=== PATIENT | female | born 1955 | race Caucasian/White ===

== ENCOUNTER → 2020-06-01 15:37 | Outpatient (CLI) | payer MEDICARE, SELFPAY ==
--- NOTE | ~2020-06-01 | US_ITS ---
EXAMINATION: US thyroid EXAM DATE: 06/01/2020 15:53 INDICATION: E04.1 - Nontoxic single thyroid nodule. TECHNIQUE: Multiple grayscale and Doppler images of the thyroid were obtained (by a technologist who performed the scan) and subsequently reviewed. Individual nodules and recommendations may be reporte d in accordance with TI-RADS system as designated by the 2017 ACR White Paper TI-RADS committee. Comp sandro is made to prior examination from 06/02/2014. FINDINGS: The right thyroid lobe measures 3.8 x 1.9 x 1.8 cm, the left measuring 4.1 x 1.8 x 1.4 cm. Measuremen ts are mildly enlarged. There is diffusely heterogeneous thyroid echogenicity. A focal region was owen sured in the left thyroid lobe measuring 6 mm, uncertain whether or not this is a nodule. In either c ase, no follow-up required for this finding. IMPRESSION: Heterogeneous mildly enlarged thyroid. Reviewed, dictated and finalized at location B. SION PLANT ENGINEER
== END ==
PROVIDERS: PCP Family Medicine; Visit Provider Family Medicine
DX: E04.1 Nontoxic single thyroid nodule (principal)
CPT/HCPCS: 76536

== ENCOUNTER → 2020-06-22 12:42 | Outpatient (CLI) | payer MEDICARE, SELFPAY ==
--- NOTE | ~2020-06-22 | MM_ITS ---
EXAMINATION: MM screening kristal BI w luci HISTORY: Screening TECHNIQUE: Craniocaudal and mediolateral oblique 3-D tomosynthesis images were obtained and synthetic 2-D images were generated. CAD analysis was submitted and interpreted. COMPARISON: Comparison to multiple prior studies sequentially, with oldest reviewed study dated 04/30. BREAST PARENCHYMAL COMPOSITION: There are scattered areas of fibroglandular density. FINDINGS: There is no evidence of suspicious mass, calcification, or architectural distortion to sugg est malignancy in either breast. There has been no suspicious interval change. IMPRESSION: 1. No mammographic evidence of malignancy. 2. Recommend routine screening mammography in one year. BI-RADS Category 1: Negative Reviewed, dictated and finalized at location A.
--- NOTE | ~2020-06-22 | DEXA_ITS ---
Bone Density Report Name: Leonard Cortes Age: 65 Sex: Female Ethnicity: White Date of : 1955 Indication: osteopenia; postmenopausal Referring Provider: MIRIAM MESSINA Study: Bone densitometry was performed. Exam Date: June 22, 2020 Accession number: [id number] Bone Density: Region BMD T-score Z-score Classification AP Spine (L1-L4) 0.799 -2.3 -0.4 Osteopenia Femoral Neck (Left) 0.694 -1.4 0.2 Osteopenia Total Hip (Left) 0.868 -0.6 0.7 Normal Femoral Neck (Right) 0.738 -1.0 0.6 Normal Total Hip (Right) 0.913 -0.2 1.0 Normal Total Hip Mean 0.890 -0.4 0.9 Normal World Health Organization criteria for BMD impression classify patients as: Normal (T-score at or above -1.0), Osteopenia (T-score between -1.0 and -2.5), or Osteoporosis (T-score at or below -2.5). 10-year Fracture Risk(1): Major Osteoporotic Fracture 8.8% Hip Fracture 0.9% Reported Risk Factors: [place] (), Neck BMD=0.694, BMI=27.7 (1) FRAX(R) Version 3.08. Fracture probability calculated for an untreated patient. Fracture probability may be lower if the patient has received treatment. Previous Exams: Region Exam Age BMD T-score BMD Change BMD Change Date g/cm2 vs Baseline vs Previous AP Spine(L1-L4) 06/22/2020 65 0.799 -2.3 -0.026* -0.026* 09/06/2016 61 0.825 -2.0 Total Hip(Left) 06/22/2020 65 0.868 -0.6 -0.006 -0.006 09/06/2016 61 0.875 -0.6 Total Hip(Right) 06/22/2020 65 0.913 -0.2 -0.028* -0.028* 09/06/2016 61 0.940 0.0 *Denotes significance at 95% confidence level, LSC for AP Spine = 0.022 g/cm2, LSC for Total Hip = 0.027 g/cm2 Clinical Information Provided by Patient: Has used the following medications: Vitamin D Patient maximum height was 64 Menopause Age: 47 No regular weight bearing exercise Drinks caffeinated beverages Onset of menses at age 11 Number of children 0 Impression: The patient has low bone mass, based on the Total Spine T-score. The patient has an estimated ten-year risk of hip fracture of 0.9% and an estimated ten-year risk of major fracture of 8.8%, based on the WHO FRAX algorithm. The BMD for the AP Spine(L1-L4) decreased, changing by -0.026 since the last DXA exam. The BMD for the Total Hip(Right) decreased, changing by -0.028 since the last DXA exam. Discussion: BONE DENSITY IS LOW AT ONE OR MORE SKELETAL SITES. This patient's lowest T-score is low at
== END ==
PROVIDERS: PCP Family Medicine; Visit Provider Family Medicine
DX: Z12.31 Encounter for screening mammogram for malignant neoplasm of breast (principal); Z78.0 Asymptomatic menopausal state; M85.88 Other specified disorders of bone density and structure, other site; M85.852 Other specified disorders of bone density and structure, left thigh
CPT/HCPCS: 77063; 77067; 77080

== ENCOUNTER 2021-07-25 11:08 | Outpatient (CLI) | payer MEDICARE, SELFPAY ==
--- NOTE | ~2021-07-25 | MR_ITS ---
EXAMINATION: MR brain/brain stem wo con DATE: 07/25/2021 11:49 INDICATION: Tremor, unspecified. TECHNIQUE: Magnetic resonance imaging (MRI) of the brain and brainstem was performed without intraven ous contrast. COMPARISON: None. FINDINGS: There are scattered areas of nonspecific increased T2-weighted signal intensity in the cere bral white matter, which is within normal limits for the patient's age. There is no intracranial hemo rrhage, acute infarction, or abnormal intracranial mass lesion. The ventricles are normal in size. Th e paranasal sinuses are clear. The orbits are normal. The mastoid air cells are normal. IMPRESSION: 1. Normal aging brain. Reviewed, dictated and finalized at location B. IMPRESSION: 1. Normal aging brain.
== END 2021-07-25 11:09 | disposition home or self-care (01) ==
PROVIDERS: PCP Family Medicine; Visit Provider Nurse Practitioner Gerontology
DX: R25.1 Tremor, unspecified (principal)
CPT/HCPCS: 70551

== ENCOUNTER → 2022-08-03 11:11 | Outpatient (CLI) | payer MEDICARE, SELFPAY ==
--- NOTE | ~2022-08-03 | XR_ITS ---
Right Humerus Technique: AP and lateral views were obtained. Clinical History: Pain Findings: No fracture or dislocation is seen. Osseous alignment is anatomic. Mild AC joint degenerati ve change present. Glenohumeral and elbow joints appear unremarkable. Soft tissues are unremarkable. Impression: Mild AC joint degenerative change. No fracture or dislocation. Reviewed, dictated and finalized at location . Impression: Mild AC joint degenerative change. No fracture or dislocation.
== END ==
PROVIDERS: PCP Nurse Practitioner Gerontology; Visit Provider Nurse Practitioner Gerontology
DX: M79.603 Pain in arm, unspecified (principal)
CPT/HCPCS: 73060

== ENCOUNTER 2023-04-01 13:54 | Outpatient (CLI) | payer MEDICARE, SELFPAY ==
--- NOTE | ~2023-04-01 | XR_ITS ---
EXAMINATION: XR foot RT min 3V DATE: 04/01/2023 14:24 INDICATION: Right foot injury and pain. TECHNIQUE: 4 views of right foot were obtained. COMPARISON: None. FINDINGS: Bone alignment is normal. There is a transverse fracture of proximal metaphysis of fourth p roximal phalanx. The distal fracture fragment demonstrates 24 degrees dorsal angulation. There is mil d osteoarthritis of first metatarsophalangeal joint and some of the interphalangeal joints and talona vicular joint. There are enthesophytes at the posterior and plantar aspects of calcaneal tuberosity. IMPRESSION: 1. Transverse fracture of fourth proximal phalanx. Reviewed, dictated and finalized at location E. M PROCESSOR
== END 2023-04-01 13:55 | disposition home or self-care (01) ==
PROVIDERS: PCP Family Medicine; Visit Provider Family Medicine
DX: S92.511A Displaced fracture of proximal phalanx of right lesser toe(s), initial encounter for closed fracture (principal); W22.8XXA Striking against or struck by other objects, initial encounter
CPT/HCPCS: 73630

== ENCOUNTER → 2023-06-05 08:42 | Outpatient (CLI) | payer MEDICARE, SELFPAY ==
--- NOTE | ~2023-06-05 | MR_ITS ---
EXAMINATION: MR brain/brain stem wo con DATE: 06/05/2023 09:11 INDICATION: Left homonymous inferior quadrantanopsia. TECHNIQUE: Magnetic resonance imaging (MRI) of the brain and brainstem was performed without intraven ous contrast. COMPARISON: Brain MRI 07/25/2021 FINDINGS: There are scattered areas of nonspecific increased T2-weighted signal intensity in the cere bral white matter, which is within normal limits for the patient's age. The pituitary is normal in si ze. There is no intracranial hemorrhage, acute infarction, or abnormal intracranial mass lesion. The ventricles are normal in size. There is mild mucosal thickening in the ethmoid sinuses. The orbits ar e normal. There is a trace left mastoid effusion. IMPRESSION: 1. Normal aging brain. Reviewed, dictated and finalized at location A. ER INSPECTOR IMPRESSION: 1. Normal aging brain.
== END ==
PROVIDERS: PCP Student in an Organized Health Care Education/Training Program; Visit Provider Student in an Organized Health Care Education/Training Program
DX: H53.462 Homonymous bilateral field defects, left side (principal)
CPT/HCPCS: 70551

== ENCOUNTER 2023-07-07 13:53 | Outpatient (CLI) | payer MEDICARE, SELFPAY ==
--- NOTE | ~2023-07-07 | XR_ITS ---
XR_CERV2-3V_CR DATE: 07/07/2023 14:43 INDICATION: Neck pain TECHNIQUE: AP, open-mouth, lateral views COMPARISON: None FINDINGS: Osteopenia. There is straightening and mild reversal of cervical curvature which may be due to muscle spasm. Ther e is slight dextroscoliosis. C1 and C2 are normally aligned and the odontoid process is intact. No fracture or dislocation or lock ed facet or prevertebral soft tissue swelling is detected. There is moderate loss of interspace height and minimal retrolisthesis at C5-6 consistent with modera te degenerative disc disease. Moderate degenerative disc disease at C6-7. The remaining cervical interspaces are well preserved. There is uncovertebral joint spurring primarily at C5-6 and C6-7. IMPRESSION: Straightening and mild reversal of cervical curvature, slight dextroscoliosis Osteopenia Mild to moderate cervical spondylosis Reviewed, dictated and finalized at Location A. Reviewed, dictated and finalized at location B. IMPRESSION: Straightening and mild reversal of cervical curvature, slight dextr oscoliosis Osteopenia Mild to moderate cervical spondylosis
== END 2023-07-07 13:54 ==
LOC: MICIMG 13:54
PROVIDERS: PCP Physician Assistant; Visit Provider Physician Assistant
DX: M85.88 Other specified disorders of bone density and structure, other site (principal); M47.892 Other spondylosis, cervical region
CPT/HCPCS: 72040

== ENCOUNTER 2024-07-14 09:01 | Outpatient (CLI) | payer MEDICARE, SELFPAY ==
[2024-07-14 09:46] LABS: Basophils Percent Auto 0.7 % (0.2-1.2); Eosinophils Absolute Auto 0.1 K/mm3 (0-0.3); Eosinophils Percent Auto 2.2 % (0-4.4); Hematocrit 43.2 % (37.0-47.0); Immature Granulocyte Absolute 0.01 K/mm3 (0.00-0.031); Immature Granulocyte Percent A 0.2 % (0-0.5); Lymphocytes Absolute Auto 1.63 K/mm3 (0.9-3.2); Lymphocytes Percent Auto 27.4 % (18.3-44.2); Mean Corpuscular HGB Conc 32.4 g/dl (32-36); Mean Corpuscular Hemoglobin 31.1 pg (26-34); Mean Platelet Volume 9.9 fl (7.4-10.4); Monocytes Absolute Auto 0.4 K/mm3 (0.1-0.6); Monocytes Percent Auto 7.4 % (2.6-8.5); Neutrophils Absolute Auto 3.7 K/mm3 (1.3-6.7); Neutrophils Percent Auto 62.1 % (45.5-73.1); Platelet Count Result 244 k/mm3 (150-375); Red Cell Distribution Width 12.7 % (11.5-14.5); White Blood Count 5.9 K/mm3 (4.5-10.0)
--- OUTSIDE RECORDS SUMMARY | 2024-07-14 09:53 | XMS_ITS | Clinical Summary ---
Author Organization [facility] Address [address] [place] [address] Care Team Providers Care Commission Auditor Name Role Phone Chantel Vega MD Primary Care Provider + Source Comments [facility],non-owned Affiliates and Associated Physician Practices is amultiple site organization consisting of ambulatory clinics and hospital sitesin [place], [place], [place] and [place]. This disclosure is being madepursuant to the Care Everywhere program and may not contain all information available regarding this patient. Last updated 17.[facility] Allergies Active Allergy Reactions Criticality Noted Date Comments Penicillins Rash Medium 04/16/2018 States can take amoxicillin without reaction Medications Be aware that medications may not be up to date on this document. Always verify current medications with the patient. No known medications Active Problems No known active problems Social History Tobacco Use Types Packs/Day Years Used Date Smoking Tobacco: Never Smokeless Tobacco: Never Sex and Gender Information Value Date Recorded Sex Assigned at Not on file Gender Identity Not on file Sexual Orientation Not on file Last Filed Vital Signs Vital Sign Reading Time Taken Comments Blood Pressure 116/66 11/02/2019 10:48 AM CDT Pulse 86 11/02/2019 10:48 AM CDT Temperature 36.9 C (98.5 F) 11/02/2019 10:48 AM CDT Respiratory Rate 16 11/02/2019 10:48 AM CDT Oxygen Saturation 98% 11/02/2019 10:48 AM CDT Inhaled Oxygen Concentration - - Weight 70.3 kg (155 lb) 11/02/2019 10:48 AM CDT Height 162.6 cm (5' 4 ) 11/02/2019 10:48 AM CDT Body Mass Index 26.61 11/02/2019 10:48 AM CDT Plan of Treatment Health Maintenance Due Date Last Done Comments BONE DENSITY TESTING 1955 COLOGUARD (AGES 45-75) - COL ON CA SCREENING 1955 COLON MONITORING 1955 COLONOSCOPY - COLON CA SCREENING 1955 CT COLONOGRAPHY - COLON CA SCREENING 1955 Colorectal Cancer Screening 1955 FIT - COLON CA SCREENING 1955 FLEX SIG - COLON CA SCREENING 1955 LIPID TESTING 1955 MAMMOGRAM 1955 HEPATITIS C SCREENING 05/13/1972 DTAP/TDAP/TD VACCINES (1 - Tdap) 1973 PNEUMOCOCCAL VACCINE 50+ (1 of 1 - PCV) 2004 ZOSTER VACCINE (1 of 2) 2004 SCREENING FOR DIABETES 11/02/2019 COVID-19 VACCINE (1 - 2023-2 5 season) 2023 DEPRESSION SCREENING 04/07/2024 MEDICARE AWV CALENDAR YEAR 2024 INFLUENZA VACCINE (Season Ended) 2024 Respiratory Syncytial Virus (RSV) Vaccine Pt: or over 60 yrs (1 - 1-dose 75+ series) 2029 HEPATITIS B VACCINE Aged Out No longe r eligible based on patient's age to complete this topic HIB VACCINE Aged Out No longer eligi ble based on patient's age to complete this topic HPV VACCINE Aged Out No longer eligi ble based on patient's age to complete this topic MENINGOCOCCAL (Group B) VACC INE SHARED DECISION-MAKING Aged Out No longer eligibl e based on patient's age to complete this topic MENINGOCOCCAL GROUPS A/C/Y/W VACCINE Aged Out No longer eligible b ased on patient's age to complete this topic Care Teams Commission Auditor Relationship Specialty Start Date End Date Chantel Vega MD [address] [place] [address] PCP - General Family Medicine 04/16/18
[2024-07-14 10:11] LABS: LDL Cholesterol Direct 213 mg/dL
[2024-07-14 10:23] LABS: Alanine Aminotransferase 27 U/L (6-35); Albumin Level 4.5 g/dL (3.5-5.1); Alkaline Phosphatase 112 U/L (38-126); Anion Gap 11 mmol/L (4-12); Aspartate Amino Transferase 26 U/L (14-36); Bilirubin,Total 0.5 mg/dL (0.2-1.3); Blood Urea Nitrogen 15 mg/dL (7-17); Calcium 9.5 mg/dL (8.4-10.2); Carbon Dioxide 26 mmol/L (22-30); Chloride 105 mmol/L (98-107); Estimated Glomerular Filt Rate > 60; Free T3 4.43 pg/mL (2.45-5.93); Free T4 Free Thyroxine 0.85 ng/dL (0.78-2.19); Glucose 91 mg/dL (65-110); HDL Direct 45 mg/dL; Potassium 4.2 mmol/L (3.4-5.0); Sodium 142 mmol/L (137-145); Triglycerides 239 mg/dL (<150)
[2024-07-14 10:58] LABS: Cholesterol 333 mg/dL (0-200)
== END 2024-07-14 09:02 | disposition home or self-care (01) ==
PROVIDERS: PCP Family Medicine; Visit Provider Student in an Organized Health Care Education/Training Program
DX: E78.5 Hyperlipidemia, unspecified (principal); E03.9 Hypothyroidism, unspecified; H53.8 Other visual disturbances; E07.9 Disorder of thyroid, unspecified
CPT/HCPCS: 36415; 80053; 80061; 84439; 84443; 84481; 85025

== ENCOUNTER 2024-08-20 07:06 | Outpatient (CLI) | payer MEDICARE, SELFPAY ==
--- NOTE | ~2024-08-20 | US_ITS ---
EXAMINATION:US venous doppler LE RT INDICATION:Swelling right knee TECHNIQUE: Multiple grayscale, color flow and Doppler images of the right lower extremity deep venous systems were obtained and reviewed. COMPARISON:No prior studies for comparison. FINDINGS: The common femoral, superficial femoral and popliteal veins demonstrate normal respiratory variation, augmentation and compressibility. Color flow is also seen within the posterior tibial, pe roneal, greater saphenous and profunda veins. IMPRESSION: 1: No lower extremity deep venous thrombosis. Reviewed, dictated and finalized at location A.
--- OUTSIDE RECORDS SUMMARY | 2024-08-20 07:09 | XMS_ITS ---
Author Organization [facility] [place] ([address]) Address [address] [place] [id number] Care Team Providers Care Export Freight Manager Name Role Phone Dr. Chantel Lubin Primary Care Provider Un available Dr. Nestor Browne Unavailable [phone] Allergies Allergen (clinical drug ingredient) Drug/Non Drug Allergy documented on EMR Reaction Allergy Type Onset Date Status Penicillin Unknown Drug Allergy Active Reason For Referral Reason PA for Botox 200 Uni ts for G24.3 Diagnosis 1 Spasmodic torticolli s (G24.3) Referral Organization [facility] Referring Provider First Name Nestor Referring Provider Last Name Hollie Referring Provider Speciality Neurology Referred Organization [facility] Referred Provider Nestor Browne Referred Address [address] [place], [place],[address], Referred Provider Specialty Neurology Referral Priority Routine REASON FOR VISIT CERTIFIED NUTRITIONIST-Neuro, Cervical dystonia Medications Medication SIG (Take, Route, Frequency, Duration) Notes Start Date End Date Status Levothyroxine Sodium 25 MCG 1 tablet in the morning on an empty stomach Orally Once a day Active Propranolol HCl ER 80 MG 1 capsule Orall y Once a day Active Problems Problem Type SNOMED Code ICD Code Onset Dates Problem Status W/U Status Risk Notes Problem Spasmodic torticollis (G24.3) Active confirmed Problem Essential tremor (574011673) Essential tremor (G25.0) Active confirmed Vital Signs Blood pressure systolic 119 mm Hg 10/16/19 24 Blood pressure diastolic 72 mm Hg 024 Respiratory Rate 16 /min 10/16/2023 Height 66 in 10/16/2023 Weight 172.4 lbs 10/16/2023 BMI 27.82 kg/m2 10/16/2023 Oximetry 99 % 10/16/2023 Encounters Encounter Location Date Provider Diagnosis [facility] [address] [place] [address] 10/16/2023 Nestor Browne Spasmodic torticolli s G24.3 and Essential tremor G25.0 Assessments Encounter Date Diagnosis (ICD Code) Assessment Notes Treatment Notes Treatment Clinical Notes Section Notes 10/16/2023 Spasmodic torticollis (ICD-10 - G24.3) PA for Botox 200 Units, plan injections B SCM, B Splenius capitis, B Semispinalis capitis, L > R Levator, L > R Trapezius (anticipate 120-150 Unit) 10/16/2023 Essential tremor (ICD-10 - G25.0) Continue current dose of propranolol. Plan Of Treatment Medication Medication Name Sig Start Date Stop Date Notes Propranolol HCl ER 80 MG 1 capsule Orally Once a day Treatment Notes Assessment Notes Spasmodic torticollis PA for Botox 200 U nits, plan injections B SCM, B Splenius capitis, B Semispinalis capitis, L > R Levator, L > R Trapezius (anticipate 120-150 Unit) Essential tremor Continue current dos e of propranolol. Referrals Referral Date Details 10/16/2023 10/16/2023, PA for B otox 200 Units for G24.3, Nestor Browne, [address] [place], [address], [email or web address], Next Appt Details Follow Up: 3 weeks, Reason: Botox Progress Notes * Bruce CORTESiDOB:1955 ([age] yo F)Acc No.[id number]:10/16/2023 CERTIFIED NUTRITIONIST Neuro Patient: Leonard RESENDIZ Provider: Donnell Browne MD :1955 A ge:68 Y S ex:Female Date:10/16/2023 Address:[address] [facility] [id number] Pcp:Dr. Chantel Lubin Subjective: * Chief Complaints: * N P-NeuroCervical dystonia * HPI: * Introduction: I had the pleasure of seeing Dion Cortes, who presented for evaluation of tremors and neck pain. She was referred by [facility] Pain Management. She has had trermors in his a head for at least 6 years, no discrete onset. The head tremors have worsened over time. She also has bilateral hand tremors, usually with action, not sure how long she has had hand tremors, may predate the head tremors. She feels like her voice is tremulous sometimes as well. She denies tremors in her legs. She was seen by Dr. Atkins, Neurology, and treated with propranolol, but she can only tolerate 80 mg daily; higher doses caused low BP and fatigue. The hand tremors are reasonably controlled and tolerable; she is much more bothered by the head tremors. Alcohol can temporarily improve her tremors. She also tried primidone but had intolerable side effects. More recently, she has developed neck pain and headache. She described pain at the base of her skull posteriorly and at the vertex, also her neck was sore and stiff. The headache did not cause light sensitivity or nausea and did not sound migrainous. There was no inciting injury, the symptoms were constant and daily. She was treated with a muscle relaxant and oral steroid course, which helped significantly temporarily, but symptoms recurred. She was then referred for C-spine MRI, reportedly did not show much pathology. She was referred to [facility]. She was then to PT. PT was working on her neck. She did improve with this, but benefit was usually temporary after each session, but has not caused adequate symptom relief. She was referred by PT to consider Botox for suspected cervical dystonia. She recently developed diffuse myalgias and stopped her atorvastatin and these symptoms resolved, so it probably was related. * ROS: C ONSTITUTIONAL: Positive for P atient denies fevers, chills, sweats, unintended weight loss, loss of appetite, or chronic fatigue. E NT: Positive P atient denies ear fullness or pain or sinus pain. R ESPIRATORY: Positive for P atient denies shortness of breath or wheezing. O PHTHALMOLOGY: Positive for R eviewed and except as mentioned above in the HPI is negative. E NDOCRINOLOGY: Positive for P atient denies heat intolerance, cold intolerance, polyuria, elevated blood sugar, chronic fatigue. C ARDIOLOGY: Positive for P atient denies dizziness, palpitations, or chest pain. G ASTROENTEROLOGY: Positive for P atient denies diarrhea, melena, bloody stools, or abdominal pain. U ROLOGY: Positive for P atient denies urinary incontinence or urinary dysfunction. D ERMATOLOGY: Positive for P atient denies rash or hives. N EUROLOGY: Positive for R eviewed and except as mentioned above in the HPI is negative. H EMATOLOGY/LYMPH: Positive for P atient denies history of excessive bruising or bleeding diasthesis. M USCULOSKELETAL: Positive for P atient denies extremity joint pain or swelling. P SYCHOLOGY: Positive for R eviewed and except as discussed above in the HPI is otherwise negative. * Medical History: * Surgical History: * Hospitalization/Major Diagno stic Procedure: * Family History: No history of tremors in first degree relative. * Social History: Non-smoker. * Medications: T akingPropranolol HCl ER 80 MG Capsule Extended Release 24 Hour 1 capsule Orally Once a day Levothyroxine Sodium 25 MCG Tablet 1 tablet in the morning on an empty stomach Orally Once a day Taking Propranolol HCl ER 80 MG Capsule Extended Release 24 Hour 1 capsule Orally Once a day Taking Levothyroxine Sodium 25 MCG Tablet 1 tablet in the morning on an empty stomach Orally Once a day DiscontinuedPropranolol HCl 80 MG Tablet 1 tablet Orally once daily Medication List reviewed and reconciled with the patientDiscontinued Propranolol HCl 80 MG Tablet 1 tablet Orally once daily Medication List reviewed and reconciled with the patient * Allergies: P enicillinno[Allergies Verified] Objective: * Vitals: B P:119/72mm Hg, HR:64/min, RR:16/min, Pulse Oximetry:99%, Ht: 66 in, Wt: 172.4 lbs, BMI:27.82Index. * Examination: G eneral examination: General appearance: P leasant, well-developed, no distress. HEENT: N o papilledema.. Oral cavity: N ormal, no lesions. Neck, thyroid : S upple, non-tender, no anterior cervical lymphadenopathy. Breasts : N ot performed. Heart: R RR, S1-S2, no murmurs, no rubs, no gallops. Lungs: C lear to auscultation and percussion in all lung grant. Abdomen: S oft, NT/ND, normal active bowel sounds. Neurologic exam: A lert and oriented x 4. Fluent speech. Intact recall, fund of knowledge. Appropriate affect. PERRL. EOMI without nystagmus. No visual field cut. Facial sensation intact to light touch and pinprick in bilateral V1/V2/V3. Facial movements normal and symmetric. Hearing intact to finger rub bilaterally. Palate symmetrically upgoing. Tongue midline. Motor 5/5 strength in all extremities. Reflexes 2+/2 and symmetric in all extremities. Bilateral flexor plantar responses. Sensory exam intact to light touch, pinprick, vibration, and proprioception in all extremities. Cerebellar testing no ataxia or dysmetria. Gait normal, negative Romberg, intact tandem. Skin: N ormal, no rash, urticaria, angioedema. Peripheral pulses: n ormal (2+) bilaterally. Back: T here is cervical dystonia. She has a mixed horizontal/vertical head tremor. She has obvious left shoulder elevation, she has subtle/mild right tilt and left rotation, there is also subtle/mild retrocollis.. Extremities: N ormal ROM, no clubbing, no cyanosis, no edema. Genitalia: N ot performed. Assessment: * Assessment: 1. S pasmodic torticollis - G24.3 (Primary) 2 . E ssential tremor - G25.0 Plan: * Treatment: 2. E ssential tremor Continue Propranolol HCl ER Capsule Extended Release 24 Hour, 80 MG, 1 capsule, Orally, Once a day. Notes:Continue current dose of propranolol. * Procedure Codes: G 8427 DOC MEDS VERIFIED W/PT OR RE * Follow Up: 3 weeks (Reason: Botox) * Billing Information: * Visit Code: 36694 Office Visit, New Pt., Level 4. Modifiers: 25 * Procedure Codes: G8427 DOC MEDS VERIFIED W/PT OR RE. * Sign off status: Completed true * Provider: Donnell Browne MD Date: 0 10/16/2023 Generated for Norma nath/Ji/Rigo on: 0 08/20/2024 07:08 AM CDT History and Physical Notes * HPI (History of Present Illness) Category Sub-Category Detail Notes Category Not es *Introduction HPI: Leonard Cortes, who presented for evaluation of tremors and neck pain. She was referred by [facility] Pain Management. She has had trermors in his a head for at least 6 years, no discrete onset. The head tremors have worsened over time. She also has bilateral hand tremors, usually with action, not sure how long she has had hand tremors, may predate the head tremors. She feels like her voice is tremulous sometimes as well. She denies tremors in her legs. She was seen by Dr. Atkins, Neurology, and treated with propranolol, but she can only tolerate 80 mg daily; higher doses caused low BP and fatigue. The hand tremors are reasonably controlled and tolerable; she is much more bothered by the head tremors. Alcohol can temporarily improve her tremors. She also tried primidone but had intolerable side effects. More recently, she has developed neck pain and headache. She described pain at the base of her skull posteriorly and at the vertex, also her neck was sore and stiff. The headache did not cause light sensitivity or nausea and did not sound migrainous. There was no inciting injury, the symptoms were constant and daily. She was treated with a muscle relaxant and oral steroid course, which helped significantly temporarily, but symptoms recurred. She was then referred for C-spine MRI, reportedly did not show much pathology. She was referred to [facility]. She was then to PT. PT was working on her neck. She did improve with this, but benefit was usually temporary after each session, but has not caused adequate symptom relief. She was referred by PT to consider Botox for suspected cervical dystonia. She recently developed diffuse myalgias and stopped her atorvastatin and these symptoms resolved, so it probably was related Examination Category Sub-Category Detail Notes Category Not es General examination HEENT: No papilledema. Neck, thyroid : Supple, non-tender, no anterior cervical lymphadenopathy Heart: RRR, S1-S2, no murmu rs, no rubs, no gallops Lungs: Clear to auscultatio n and percussion in all lung grant Abdomen: Soft, NT/ND, normal active bowel sounds Extremities: Normal ROM, no clubb ing, no cyanosis, no edema General appearance: Pleasant, well-devel oped, no distress Skin: Normal, no rash, urt icaria, angioedema Neurologic exam: Alert and oriented x 4. Fluent speech. Intact recall, fund of knowledge. Appropriate affect. PERRL. EOMI without nystagmus. No visual field cut. Facial sensation intact to light touch and pinprick in bilateral V1/V2/V3. Facial movements normal and symmetric. Hearing intact to finger rub bilaterally. Palate symmetrically upgoing. Tongue midline. Motor 5/5 strength in all extremities. Reflexes 2+/2 and symmetric in all extremities. Bilateral flexor plantar responses. Sensory exam intact to light touch, pinprick, vibration, and proprioception in all extremities. Cerebellar testing no ataxia or dysmetria. Gait normal, negative Romberg, intact tandem Oral cavity: Normal, no lesions Breasts : Not performed Peripheral pulses: normal (2+) bilatera lly Back: There is cervical dy stonia. She has a mixed horizontal/vertical head tremor. She has obvious left shoulder elevation, she has subtle/mild right tilt and left rotation, there is also subtle/mild retrocollis. Genitalia: Not performed Consultation Request Notes Referral Date Referring Provider Referred Provider Not estefany 10/16/2023 Nestor Browne Michael PA for Alex tox 200 Units for G24.3
--- OUTSIDE RECORDS SUMMARY | 2024-08-20 07:09 | XMS_ITS | Clinical Summary ---
Author Organization [facility] Address [address] [place] [address] Care Team Providers Care Dipper Machine Operator Name Role Phone Chantel Vega MD Primary Care Provider + Source Comments [facility],non-owned Affiliates and Associated Physician Practices is amultiple site organization consisting of ambulatory clinics and hospital sitesin [place], [place], [place] and [place]. This disclosure is being madepursuant to the Care Everywhere program and may not contain all information available regarding this patient. Last updated 17.[facility] Allergies Active Allergy Reactions Criticality Noted Date Comments Penicillins Rash Medium 04/16/2018 States can take amoxicillin without reaction Medications * Be aware that medications may not be up to date on this document. Alwaysverify current medications with the patient. 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
--- OUTSIDE RECORDS SUMMARY | 2024-08-20 07:09 | XMS_ITS | Patient Health Record ---
Author Organization [facility] [place] ([address]) Address [address] [place] [address] Care Team Providers Care Price Accuracy Supervisor Name Role Phone Dr. Chantel Lubin Primary Care Provider Un available Dr. Nestor Browne Unavailable [phone] Allergies Allergen (clinical drug ingredient) Drug/Non Drug [...] Referred Provider Nestor Browne Referred Address [address] [place], [place],[address], Referred Provider Specialty Neurology Referral Priority Routine Medications Medication SIG (Take, Route, Frequency, Duration) [...] torticollis (G24.3) Active confirmed Problem Essential tremor (521361091) Essential tremor (G25.0) Active confirmed Vital Signs Respiratory Rate 16 /min 10/16/2023 Oximetry 99 % 10/16/2023 Blood pressure diastolic 72 mm Hg 10/16/2023 Height 66 in 10/16/2023 Blood pressure systolic 119 mm Hg 10/16/2023 Weight 172.4 lbs 10/16/2023 BMI 27.82 kg/m2 10/16/2023 Encounters Encounter Location Date Provider Diagnosis [facility] [address] [place] [address] 10/16/2023 Nestor Browne Spasmodic torticolli s G24.3 and Essential tremor G25.0 [facility] [address] [place] [address] 11/06/2023 Nestor Bragaer Spasmodic torticolli s G24.3 Assessments Encounter Date Diagnosis (ICD Code) Assessment Notes Treatment Notes Treatment Clinical Notes Section Notes 10/16/2023 Spasmodic torticollis (ICD-10 - G24.3) PA for Botox 200 Units, plan injections B SCM, B Splenius capitis, B Semispinalis capitis, L > R Levator, L > R Trapezius (anticipate 120-150 Unit) 10/16/2023 Essential tremor (ICD-10 - G25.0) Continue current dose of propranolol. 11/06/2023 Spasmodic torticollis (ICD-10 - G24.3) She was concerned that her out of pocket cost for injection was too high and we did not inject her. We will look into whether Dysport or Xeomin would be less expensive for her. I discussed with her that oral antispasmodics will likely not help this problem very much and can be sedating Plan Of Treatment No Information Insurance Providers Payer Name Payer Address Payer Phone Subscriber Number Group Number Insured Name Patient Relationship to Insured Coverage Start Date Coverage End Date [employer] Medicare [address] [address] [place] [address] [id number] Sebastian Leonard Self - patient is the insured Medical (General) History Medical History History ICD Code Essential tremor Cervical dystonia Hypothyroidism HLD
--- OUTSIDE RECORDS SUMMARY | 2024-08-20 07:09 | XMS_ITS ---
Author Organization [facility] [place] ([address]) Address [address] [place] [address] Care Team Providers Care Mainspring Strip Gauger Name Role Phone Dr. Chantel Lubin Primary Care Provider Un available Dr. Nestor Browne [facility] [phone] Allergies Allergen (clinical drug ingredient) Drug/Non Drug Allergy documented on EMR Reaction Allergy Type Onset Date Status Penicillin Unknown Drug Allergy Active REASON FOR VISIT Botox New Start, Cervical Dystonia Medications Medication SIG (Take, Route, Frequency, Duration) Notes Start Date End Date Status Levothyroxine Sodium 25 MCG 1 tablet in the morning on an empty stomach Orally Once a day Active Propranolol HCl ER 80 MG 1 capsule Orall y Once a day Active Encounters Encounter Location Date Provider Diagnosis [facility] [address] [place] [address] 11/06/2023 Nestor Browne Spasmodic torticolli s G24.3 Assessments Encounter Date Diagnosis (ICD Code) Assessment Notes Treatment Notes Treatment Clinical Notes Section Notes 11/06/2023 Spasmodic torticollis (ICD-10 - G24.3) She was concerned that her out of pocket cost for injection was too high and we did not inject her. We will look into whether Dysport or Xeomin would be less expensive for her. I discussed with her that oral antispasmodics will likely not help this problem very much and can be sedating Plan Of Treatment Treatment Notes Assessment Notes Spasmodic torticollis She was concerned that her out of pocket cost for injection was too high and we did not inject her. We will look into whether Dysport or Xeomin would be less expensive for her. I discussed with her that oral antispasmodics will likely not help this problem very much and can be sedating Next Appt Details Follow Up: 3 Months, Reason: Toxin injection Progress Notes * Bruce CORTESiDOB:1955 ([age] yo F)Acc No.[id number]:11/06/2023 Progress Notes Patient: Leonard RESENDIZ Provider: Donnell Browne MD :1955 A ge:68 Y S ex:Female Date:11/06/2023 Address:[address] [id number] Pcp:Dr. Chantel Lubin Subjective: * Chief Complaints: * B otox New StartCervical Dystonia * HPI: * Introduction: I had the pleasure of seeing Dion Cortes today who presented for Botox injections for cervical dystonia. * Initial History: I had the pleasure of seeing Dion Cortes, who presented for evaluation of tremors and neck pain. She was referred by [facility] Pain Management. She has had trermors in [...] show much pathology. She was referred to IPC. She was then to PT. PT was working on her neck. She did improve with this, but benefit was usually temporary after each session, but has not caused adequate symptom relief. She was referred by PT to consider Botox for suspected cervical dystonia. She recently developed diffuse myalgias and stopped her atorvastatin and these symptoms resolved, so it probably was related. * Interval History: Patient was concerned about [id number] cost of Botox and did not want to receive Botox injections today. We discussed other options. * Medical History: * Surgical History: * Hospitalization/Major Diagno stic Procedure: * Family History: No history of tremors in first degree relative. * Social History: Non-smoker. * Medications: T akingLevothyroxine Sodium 25 MCG Tablet 1 tablet in the morning on an empty stomach Orally Once a day Propranolol HCl ER 80 MG Capsule Extended Release 24 Hour 1 capsule Orally Once a day Taking Levothyroxine Sodium 25 MCG Tablet 1 tablet in the morning on an empty stomach Orally Once a day Taking Propranolol HCl ER 80 MG Capsule Extended Release 24 Hour 1 capsule Orally Once a day * Allergies: P enicillin Objective: * Vitals: * Physical Examination: Dion tamera's visit was spent in counseling. Assessment: * Assessment: 1. S pasmodic torticollis - G24.3 Plan: * Treatment: * Procedure Codes: * Preventive Medicine: T his was a 20 minute visit with time spent in discussion of treatment options. * Follow Up: 3 Months (Reason: Toxin injection) * Billing Information: * Visit Code: 79795 Office Visit, Est Pt., Level 3. Modifiers: 25 * Procedure Codes: * Sign off status: Completed true * Provider: Donnell Browne MD Date: 0 11/06/2023 Generated for Norma nath/Ji/Rigo on: 0 08/20/2024 07:09 AM CDT History and Physical Notes * HPI (History of Present Illness) Category Sub-Category Detail Notes Category Not es *Introduction HPI: Leonard Sebastian today who presented for Botox injections for cervical dystonia *Initial History I had the p margot of seeing Leonard Cortes, who presented for evaluation of tremors and neck pain. She was referred by [facility] Pain Management. She has had trermors in [...] show much pathology. She was referred to [facility]. She was then to PT. PT was working on her neck. She did improve with this, but benefit was usually temporary after each session, but has not caused adequate symptom relief. She was referred by PT to consider Botox for suspected cervical dystonia. She recently developed diffuse myalgias and stopped her atorvastatin and these symptoms resolved, so it probably was related. *Interval History Patient wa s concerned about [id number] cost of Botox and did not want to receive Botox injections today. We discussed other options Physical Examination Category Sub-Category Detail Notes Section Note s Today's visit w as spent in counseling
== END 2024-08-20 07:07 | disposition home or self-care (01) ==
PROVIDERS: PCP Family Medicine; Visit Provider Physician Assistant Medical
DX: M79.604 Pain in right leg (principal); M79.89 Other specified soft tissue disorders; M79.661 Pain in right lower leg
CPT/HCPCS: 93971

== ENCOUNTER 2024-08-25 14:39 | Outpatient (CLI) | payer MEDICARE, SELFPAY ==
--- NOTE | ~2024-08-25 | XR_ITS ---
Right Knee Technique: AP, lateral, and sunrise views were obtained. Clinical History: Pain Findings: No fracture or dislocation is seen. Osseous alignment is anatomic. Joint spaces are preserv ed, with minimal spurring. Soft tissues are unremarkable. No joint effusion is seen. Impression: Minimal degenerative spurring about the knee. Reviewed, dictated and finalized at location . Impression: Minimal degenerative spurring about the knee.
== END 2024-08-25 14:40 | disposition home or self-care (01) ==
LOC: MICIMG 14:40
PROVIDERS: PCP Family Medicine; Visit Provider Physician Assistant Medical
DX: M25.561 Pain in right knee (principal)
CPT/HCPCS: 73562